=== PATIENT | female | born 1990 | race Caucasian/White ===

== ENCOUNTER → 2025-06-29 | Outpatient (CLI) | payer BC | LOC: M RAD 10:02 | PROVIDERS: ATTEND Nurse Practitioner Family | DX: O36.80X0 Pregnancy with inconclusive fetal viability, not applicable or unspecified (principal); Z3A.01 Less than 8 weeks gestation of pregnancy ==

== ENCOUNTER 2025-07-03 14:34 | Day surgery (SDC) | payer BC ==
[~2025-07-03] VITALS: Ht 167.6 cm; Wt 72.2 kg
[2025-07-03] MEDS ORDERED: dexAMETHasone 4 MG/ML 1 ML VIAL As Ordered ONE (14:54)
[2025-07-03] MEDS ORDERED: LIDOCAINE 2% 100 MG/5 ML SDV (FOR ANES.) As Ordered ONE (14:54)
[2025-07-03] MEDS ORDERED: ONDANSETRON 4MG/2ML VIAL As Ordered ONE (14:54)
[2025-07-03] MEDS ORDERED: MIDAZOLAM INJ 2 MG/2 ML VIAL As Ordered ONE (16:28)
[2025-07-03] MEDS: DOXYCYCLINE HYCLATE 100 MG/10 ML VIAL As Ordered ONE (17:06)
[2025-07-03] MEDS ORDERED: HYDROMORPHONE HCL 0.5 MG/0.5 ML SYRINGE IV PRN (17:10)
[2025-07-03] MEDS ORDERED: LR 1,000 ML IV SCH (17:10)
[2025-07-03] MEDS ORDERED: ONDANSETRON 4MG/2ML VIAL IV PRN (17:10)
[2025-07-03] MEDS ORDERED: ACETAMINOPHEN 1000MG/100ML IV BAG As Ordered ONE (17:12)
[2025-07-03] MEDS ORDERED: KETOROLAC 30 MG/ML 1 ML VIAL As Ordered ONE (17:13)
[2025-07-03] MEDS: SILVER NITRATE APPLICATOR (1 = QTY 10) As Ordered ONE (17:17)
[2025-07-03 18:10] VITALS: BP 132/75; TEMP 98.8; O2SAT 99
== END 2025-07-03 18:59 | disposition home or self-care (01) ==
LOC: M SDC 14:34
PROVIDERS: ATTEND Student in an Organized Health Care Education/Training Program
DX: O02.1 Missed abortion (principal)
CPT/HCPCS: 59820; 76801; 88305; J0131; J1100; J1271; J1885; J2250; J2405; J3010

== ENCOUNTER 2025-07-07 07:31 | Emergency (ER) | payer BC ==
[~2025-07-07] VITALS: Ht 167.6 cm; Wt 70.0 kg
[2025-07-07 08:18] LABS: BASO # 0.1 10^3/uL (0.0-0.2); BASO % 0.3 % (0.0-1.0); EOS # 0.1 10^3/uL (0.0-0.5); EOS % 0.3 % (0.0-3.0); LYMPH # 1.1 10^3/uL (1.5-5.0); LYMPH % 7.3 % (24.0-44.0); MONO # 0.9 10^3/uL (0.0-0.8); MONO % 6.3 % (2.0-8.0); NEUTROPHILS # 12.5 10^3/uL (1.5-8.5); NEUTROPHILS % 85.3 % (36.0-66.0); PLATELET COUNT, AUTOMATED 240 10^3/uL (150-450)
[2025-07-07] MEDS: ONDANSETRON 4MG/2ML VIAL IV ONE (08:25)
[2025-07-07] MEDS: NS (Normal Saline) 0.9% 1,000 ML IV ONE (08:25)
[2025-07-07] MEDS: MORPHINE 2 MG/ML 1 ML VIAL IV PRN (08:27)
[2025-07-07 08:33] LABS: ALT/SGPT 15 U/L (7.0-40); AST/SGOT 17 U/L (<34); CALCIUM LEVEL 9.2 MG/DL (8.5-10.1); CARBON DIOXIDE LEVEL 25 MMOL/L (20-31); CHLORIDE LEVEL 103 MMOL/L (98-107); CREATININE FOR GFR 0.66 MG/DL (0.55-1.30); GLOMERULAR FILTRATION RATE > 90.0 (>60); POTASSIUM SERUM 3.9 MMOL/L (3.5-5.1); SODIUM LEVEL 140 MMOL/L (136-145)
[2025-07-07 08:41] LABS: INR 0.99
[2025-07-07 08:47] LABS: HCG, SERUM QUANTITATIVE 1719.5 MIU/ML (<4.2)
[2025-07-07] MEDS ORDERED: ISOVUE-370 76% 100 ML VIAL As Ordered ONE (09:14)
[2025-07-07 12:34] LABS: BASO # 0.0 10^3/uL (0.0-0.2); BASO % 0.2 % (0.0-1.0); EOS # 0.0 10^3/uL (0.0-0.5); EOS % 0.0 % (0.0-3.0); LYMPH # 0.7 10^3/uL (1.5-5.0); LYMPH % 4.0 % (24.0-44.0); MONO # 0.7 10^3/uL (0.0-0.8); MONO % 4.3 % (2.0-8.0); NEUTROPHILS # 15.5 10^3/uL (1.5-8.5); NEUTROPHILS % 91.0 % (36.0-66.0); PLATELET COUNT, AUTOMATED 218 10^3/uL (150-450)
[2025-07-07] MEDS ORDERED: NS (Normal Saline) 0.9% 1,000 ML IV ONE (14:20)
[2025-07-07 15:30] VITALS: TEMP 99; O2SAT 98
[2025-07-07 16:07] VITALS: BP 128/81
== END 2025-07-07 16:09 | disposition home or self-care (01) ==
LOC: M ED 07:31
DX: N99.820 Postprocedural hemorrhage of a genitourinary system organ or structure following a genitourinary system procedure (principal)
CPT/HCPCS: 74177; 76830; 76856; 80047; 80048; 80076; 83605; 83690; 84702; 85025; 85610; 85730; 86850; 86900; 86901; 88305; 93041; 93976; 96361; 96374; 96375; 99285; J2405; Q9967